=== PATIENT | male | born 2000 ===

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

== ENCOUNTER → 2019-01-25 | Outpatient (CLI) | payer OTHER ==
[2018-01-01 12:35] VITALS: BMI 21.9
[~2019-01-25] MED LIST changes: +FLU60VIA41 IM; +INSU100I13 SUBQ; +PNEI IM
== END ==
LOC: LAB 14:45
PROVIDERS: ATTEND Anesthesiology
DX: Z01.812 Encounter for preprocedural laboratory examination (principal); S42.031A Displaced fracture of lateral end of right clavicle, initial encounter for closed fracture; E11.9 Type 2 diabetes mellitus without complications; E07.9 Disorder of thyroid, unspecified
CPT/HCPCS: 36415; 82040; 82247; 82310; 82374; 82435; 82565; 82947; 83036; 84075; 84132; 84155; 84295; 84450; 84460; 84520